=== PATIENT | female | born 1970 | race Caucasian/White ===

== ENCOUNTER 2018-05-09 17:52 | Emergency (ER) | payer BC ==
[~2018-05-09] VITALS: Ht 167.6 cm; Wt 90.7 kg
[~2018-05-09 17:52] MED LIST: ROLAIDS PO; TUMS PO
--- OUTSIDE RECORDS SUMMARY | 2018-05-09 17:56 | XMS REPORT | Summary of Care ---
Author Organization Unknown Address Unknown Phone Unavailable Encounter [facility] Encntr_katelyn([facility]) [id number] Date(s): 02/16/14 - 02/16/14 [facility] Outpatient Imaging - [address] [address] Discharge Disposition: Home Physician Attending: David Baron MD Reason for Visit 789.09 - ABDMNAL PAIN OT Problem List No data available for this section Allergies, Adverse Reactions, Alerts No data available for this section Medications No data available for this section Medications Administered During Your Visit No data available for this section Immunizations No data available for this section
--- OUTSIDE RECORDS SUMMARY | 2018-05-09 17:56 | XMS REPORT | Summary of Care ---
Author Author [facility] Organization [facility] Address Unknown Phone Unavailable Encounter CIPRIANO Velasquez([facility]) [phone] Date(s): 01/02/17 - 01/02/17 [facility] [address] [place] [address]- Discharge Disposition: Home or Self Care Attending Physician: Luis Machado MD Referring Physician: Luis Machado MD Vital Signs No data available for this section Problem List No data available for this section Allergies, Adverse Reactions, Alerts No data available for this section Medications No data available for this section Results CHEM PANEL Most recent to 1 oldest [Reference Range]: eGFR 105 mL/min/1.73m2 1 *NA* (01/02/17 2:43 PM) POC Creatinine 0.7 mg/dL [0.5-1.4 mg/dL] (01/02/17 2:43 PM) 1Result Comment: The eGFR is calculated using the CKD-EPI formula. In most young, healthy individuals the eGFR will be >90 mL/min/1.73m2. The eGFR declines with age. An eGFR of 60-89 may be normal in some populations, particularly the elderly, for whom the CKD-EPI formula has not been extensively validated. Use of the eGFR is not recommended in the following populations: Individuals with unstable creatinine concentrations, including patients and those with serious co-morbid conditions. Patients with extremes in muscle mass or diet. The data above are obtained from the National Kidney Disease Education Program ( NKDEP) which additionally recommends that when the eGFR is used in patients with extremes of body mass index for purposes of drug dosing, the eGFR should be mul tiplied by the estimated BMI. Immunizations No data available for this section Procedures No data available for this section Social History No data available for this section Assessment and Plan No data available for this section
--- OUTSIDE RECORDS SUMMARY | 2018-05-09 17:56 | XMS REPORT | Summary of Care ---
Author Organization Unknown Address Unknown Phone Unavailable Encounter [facility] Encntr[facility]katelyn([facility]) [phone] Date(s): 02/24/14 - 02/24/14 [facility] Outpatient Imaging - [address] [address] [place] Discharge Disposition: Home Physician Attending: David Baron MD Reason for Visit 789.01 - ABDMNAL PAIN RT Problem List No data available for this section Allergies, Adverse Reactions, Alerts No data available for this section Medications No data available for this section Medications Administered During Your Visit No data available for this section Immunizations No data available for this section
--- OUTSIDE RECORDS SUMMARY | 2018-05-09 17:56 | XMS REPORT | Continuity of Care Document ---
Author Author [facility] [email or web address] [facility] Interface Address Unknown Phone Unavailable Problems Problem Status Onset Date Classification Date Reported Comments Source R10.13, R12 Active 01/02/2017 [facility] Medications Medication Details Route Status Patient Instructions Ordering Provider Order Date Source Allergies, Adverse Reactions, Alerts Substance Category Reaction Severity Reaction type Status Date Reported Comments Source Immunizations Immunization Date Given Site Status Last Updated Comments Source Results Order Name Results Value Reference Range Date Interpretation Comments Source CHEM PANEL eGFR 105 mL/min/1.73m2 01/02/2017 Result Comment: The eGFR is calculated using the [...] from the National Kidney Disease Education Program (NKDEP) which additionally recommends that when the eGFR is used in patients with extremes of body mass index for purposes of drug dosing, the eGFR should be multiplied by the estimated BMI. [facility] CHEM PANEL POC Creatinine 0.7 mg/dL 0.5 - 1.4 01/02/2017 [facility] Abdomen/Pelvis w IV contrast CT Abdomen/Pelvis w IV contrast CT Patient Name: DARREN MEDEL : 1970; Age: 46 years Female MR: [id number] Study: Abdomen/Pelvis w IV contrast CT 01/02/2017 1:54 PM CDT CLINICAL INDICATION: ct dlp 2019 mGycm; 100 cc omni IV \T\ 25 cc omni PO - Diverticulitis; LLQ abdominal pain; RLQ abdominal pain; epigastric pain; heartburn COMPARISON: CT on 02/16/2014 TECHNIQUE: Multidetector CT imaging of the abdomen and pelvis was performed from the diaphragm through the lesser trochanters WITH IV contrast. Coronal and sagittal reconstructions were generated and reviewed. FINDINGS: Lower thorax: Clear. Hepatobiliary: Hepatic steatosis. Cholecystectomy. Pancreas: No focal mass or ductal dilatation. Spleen: No splenomegaly. Adrenals: No nodules. Kidneys: Nonobstructive 3 mm calculus within the superior left kidney. No hydronephrosis. Pelvic organs: Unremarkable uterus and bladder. Peritoneum/Retroperitoneum: No free air or free fluid. Lymph nodes: No lymphadenopathy. Vessels: Unremarkable. GI: No significant bowel thickening or dilatation. Sigmoid diverticulosis. No significant perisigmoid inflammation. The appendix appears unremarkable. Bones and soft tissues: Mild degenerative changes of the lumbar spine. IMPRESSION: Small nonobstructive left renal calculus. Sigmoid diverticulosis. Hepatic steatosis. SL: [id number] 01/02/2017 - - Read by: Gloria Guy MD Dictated Date/time: 01/02/17 16:46 Electronically Signed by: Gloria Guy MD 01/02/17 16:52 FINAL REPORT [facility] Vital Signs Vital Sign Value Date Comments Source Encounters Location Location Details Encounter Type Encounter Number Reason For Visit Attending Provider ADM Date DC Date Status Source [facility] [id number] David Baron 02/16/2014 02/17/2014 AMENA Hameed [facility] - [place] [facility] [id number] David Baron 02/24/2014 02/25/2014 AMENA Hameed [facility]patient [id number] Luis Machado 01/02/2017 01/03/2017 [facility] Procedures Procedure Code Date Perfomer Comments Source
[2018-05-09] MEDS ORDERED: KETOROLAC TROMETHAMINE 60 MG/2 ML VIAL IM ONE (19:00)
== END 2018-05-09 18:25 | disposition home or self-care (01) ==
LOC: FSED 17:52
DX: H65.02 Acute serous otitis media, left ear (principal); R05 Cough
CPT/HCPCS: 99282; J1885